=== PATIENT | male | born 1980 | race Caucasian/White ===

== ENCOUNTER 2021-10-15 23:24 | Observation (INO) | payer OTHER, SELFPAY ==
--- NOTE | ~2021-10-15 | CT_ITS ---
EXAMINATION: CT abdomen pelvis w con DATE: 10/16/2021 01:45 INDICATION: Right upper quadrant abdominal pain radiating to back TECHNIQUE: Computed tomography (CT) of the abdomen and pelvis was performed with 100 CC Omnipaque 300 intravenous contrast. Automated exposure control and iterative reconstruction technique were employe d. Exam dose: 760.75 mGy-cm total exam DLP. COMPARISON: None. FINDINGS: The lung bases are clear of infiltrate or consolidation. Normal heart size. No pericardial or pleural effusion. Patchy hepatic steatosis. Cholelithiasis. Gallbladder wall thickening/edema, suggesting acute cholecy stitis. No bile duct or pancreatic duct dilatation. No hepatic, splenic, pancreatic, and adrenal or renal space-occupying mass lesion is detected. No uri nary tract calculus or hydroureteronephrosis. The urinary bladder and prostate gland are unremarkable . Normal appendix. No bowel obstruction, bowel wall thickening, pneumatosis or intraperitoneal free air . Normal caliber and mild atherosclerotic calcification of the abdominal aorta and iliac arteries. No i ntraperitoneal or retroperitoneal or pelvic mass lesion or adenopathy or ascites. Small fat-containing umbilical hernia Severe avascular necrosis, deformity of the left femoral head and prominent secondary left hip osteoa rthritis. Otherwise no suspicious osteolytic or osteoblastic lesions. IMPRESSION: Cholelithiasis and suspected acute cholecystitis Avascular necrosis and secondary osteoarthritis of left hip Reviewed, dictated and finalized at [facility] Reviewed, dictated and finalized at [facility].
[2021-10-15 23:29] VITALS: BP 175/102; PULSE 81; RESP 18; TEMP 36.6; O2SAT 100
[2021-10-16] VITALS (20 sets, daily range): BP systolic 83–182; BP diastolic 41–111; PULSE 59–92; RESP 8–20; TEMP 32.7–36.7; O2SAT 92–100; BMI 33.0
[2021-10-16 00:07] LABS: Basophils Absolute Auto 0.1 K/mm3 (0.0-0.1); Basophils Percent Auto 0.6 % (0.2-1.2); Eosinophils Percent Auto 0.2 % (0-4.4); Hematocrit 43.2 % (42.0-52.0); Hemoglobin 15.2 g/dL (14.0-18.0); Immature Granulocyte Absolute 0.06 K/mm3 (0.00-0.031); Immature Granulocyte Percent A 0.5 % (0-0.5); Lymphocytes Absolute Auto 3.79 K/mm3 (0.9-3.2); Lymphocytes Percent Auto 34.5 % (18.3-44.2); Mean Corpuscular HGB Conc 35.2 g/dl (32-36); Mean Corpuscular Hemoglobin 31.1 pg (26-34); Mean Corpuscular Volume 88.3 fl (80-100); Mean Platelet Volume 10.3 fl (7.4-10.4); Monocytes Absolute Auto 0.7 K/mm3 (0.1-0.6); Monocytes Percent Auto 6.6 % (2.6-8.5); Neutrophils Absolute Auto 6.3 K/mm3 (1.3-6.7); Neutrophils Percent Auto 57.6 % (45.5-73.1); Platelet Count Result 267 k/mm3 (150-375); Red Blood Count 4.89 M/mm3 (4.6-6.20)
[2021-10-16 00:20] LABS: Alanine Aminotransferase 48 U/L (6-50); Albumin Level 4.6 g/dL (3.5-5.1); Alkaline Phosphatase 63 U/L (38-126); Anion Gap 7 mmol/L (8-16); Aspartate Amino Transferase 37 U/L (17-59); Bilirubin,Total 0.4 mg/dL (0.2-1.3); Blood Urea Nitrogen 19 mg/dL (9-20); Calcium 9.1 mg/dL (8.4-10.2); Carbon Dioxide 25 mmol/L (22-30); Chloride 106 mmol/L (98-107); Estimated CRCL calculation 77 ml/min; Estimated Glomerular Filt Rate > 60; Glucose 123 mg/dL (65-110); Lipase 61 U/L (23-300); Potassium 3.8 mmol/L (3.4-5.0); Sodium 138 mmol/L (137-145)
--- NOTE | 2021-10-16 00:26 | ED.ABDPAIN ---
HPI - Abdominal Pain General Chief Complaint: Abdominal Pain Stated Complaint: epigastric pain Time Seen by Provider: 10/16/21 00:11 Source: patient Mode of arrival: ambulatory Limitations: no limitations History of Present Illness HPI narrative: Patient is a 40-year-old male who presents the ED with report of RUQ/epigastric abdominal pain. Patient reports the pain has been going on for the last couple weeks, but became worse over the last 1 week and constant tonight. The pain sometimes does radiate to his back. He has been taking ibuprofen intermittently at home which seems to provide temporary relief, but did not provide relief tonight, thus prompting his presentation to the ED. He also reports having nausea, but denies any vomiting. He has had some diarrhea as well. No rectal bleeding. No fevers, chills. No dysuria, hematuria, urinary frequency. Related Data Allergies Allergy/AdvReac Type Severity Reaction Status Date / Time No Known Allergies Allergy Verified 10/15/21 23:29 Review of Systems Review of Systems: CONSTITUTIONAL: Denies fever, chills, or sweats. CARDIOVASCULAR: Denies chest pain. RESPIRATORY: Denies dyspnea. GASTROINTESTINAL: Reports right upper quadrant/epigastric pain, nausea, diarrhea. Denies vomiting, rectal bleeding. GENITOURINARY: Denies dysuria, urinary frequency, or hematuria. MUSCULOSKELETAL: Reports back pain, radiated from abdominal pain. NEUROLOGIC: Denies headache, numbness, or weakness. All systems reviewed & are unremarkable except as noted in HPI and below PMFSH Past Medical History Medical History (Updated 10/16/21 @ 04:41 by Diane Perez PA-C) No pertinent past medical history Surgical History Surgical History (Updated 10/16/21 @ 00:57 by Diane Perez PA-C) History of vasectomy Family History Family History (Updated 10/16/21 @ 06:32 by Bonnie East RN) Mother Diabetes mellitus Social History Social History (Updated 10/16/21 @ 00:57 by Diane Perez PA-C) Smoking status: Heavy tobacco smoker Second hand tobacco smoke exposure: Yes Alcohol intake: current Drinks per week: 6 Substance use: never Spiritual care concerns: No Exam Narrative: GENERAL: Uncomfortable appearing, well-nourished, non-toxic, in moderate acute distress. HEAD: Normocephalic, atraumatic. NECK: Supple. No adenopathy, no masses. RESPIRATORY: Airway patent, respirations nonlabored. Clear to auscultation bilaterally, no rales, rhonchi, wheezing. CARDIOVASCULAR: Regular rate and rhythm without murmurs, rubs, or gallops. Peripheral pulses 2+ and equal bilaterally. ABDOMINAL: Soft, significant tenderness to palpation and epigastric region and right upper quadrant, voluntary guarding. Nondistended, no hepatosplenomegaly. Normoactive BS. MUSCULOSKELETAL: Moves all extremities. Strength/ROM intact without gross deformities. SKIN: Warm, dry, normal color. No rashes. NEURO: A&O X3. Speech clear. Cranial nerves II-XII grossly intact. Steady gait. No ataxic movements. PSYCHIATRIC: Appropriate mood and affect. Normal interaction. Course Consultations Consultation #1: Discussed case with Dr. Rivas, General Surgery, accepted admission under his service. Pain meds as needed. Will see patient in the morning. Date: 10/16/21 Time: 04:41 Vital Signs Vital signs: Vital Signs Temperature 97.9 F 10/15/21 23:29 Pulse Rate 81 10/15/21 23:29 Respiratory Rate 18 10/15/21 23:29 Blood Pressure 175/102 H 10/15/21 23:29 Pulse Oximetry 100 10/15/21 23:29 Oxygen Delivery Room Air 10/15/21 23:29 Temperature 96.6 F L 10/16/21 06:17 Pulse Rate 63 10/16/21 06:17 Respiratory Rate 20 10/16/21 06:17 Blood Pressure 155/95 H 10/16/21 06:17 Pulse Oximetry 100 10/16/21 06:17 Oxygen Delivery Room Air 10/16/21 07:54 MDM - Abdominal Pain MDM Narrative Medical decision making narrative: Patient presented to ED with report of epigastric/right upper quadrant abdom
[2021-10-16] MEDS: SODIUM CHLORIDE 0.9% IV 1,000 ML 999 ML IV CONT (00:57)
[2021-10-16] MEDS: ONDANSETRON INJ 4 MG/2 ML VIAL IV PUSH (00:58)
[2021-10-16] MEDS: MORPHINE SULFATE (*CRX) 4 MG/ML INJ IV PUSH ×3 (00:58→07:50)
[2021-10-16 01:13] LABS: Appearance Urine Clear (Clear); Bilirubin Urine 1+ (Negative); Color Urine Yellow (Yellow); Glucose Urine UA Negative (Negative); Ketones Urine Negative (Negative); Leukocyte Esterase Ur Negative LEU/UL (Negative); Nitrate Urine Negative (Negative); Protein Urine Negative (Negative); Specific Grav Ur >= 1.030 (1.001-1.035); Urobilinogen Urine 0.2 mg/dL (<2.0); pH Urine 5.5 (5.0-9.0)
[2021-10-16 01:18] LABS: Bacteria Urine Trace /hpf; Mucus Urine Rare /lpf; RBC Urine 0-2 /hpf (0-2); Squamous Epithelial Cell Urine Rare /hpf (Few); WBC Urine 0-3 /hpf
[2021-10-16 01:20] LABS: Add Urine Microscopic? YES; Blood Urine Trace-Intact (Negative)
[2021-10-16] MEDS: HYDROmorphone HCL INJ (*CRX) 1 MG/ML SYR 0.5 MG IV PUSH ×2 (01:31→02:59)
--- NOTE | 2021-10-16 06:55 | ADMGEN ---
0615 This patient, Senthil Mcguire, was admitted to Medical Room 246-01. Patient/family oriented to hospital policies and general routines including ID bracelet, bed and alarms, visiting hours, pain management, procedures, bathroom and other care routines, personal items, smoking policy, room service/diet, and visiting hours. Information on how to activate the Rapid Response Team has been discussed. Patient/Family are encouraged to report perceived risks to care and to ask questions if they do not understand what they are told or what they should do.
--- NOTE | 2021-10-16 08:24 | WPDANESEPP ---
Anes - Eval Pre Procedure Procedure: Laparoscopic Cholecystectomy Date/Time: 10/16/21 08:24 Surgeon: Rob Pre Op Diagnosis: Acute Cholecystitis Patient Data Age: 40 Gender: M Height: 1.7 m Weight: 95.6 kg Last Vital Signs Temp 35.9 C L 10/16/21 06:17 Pulse 63 10/16/21 06:17 Resp 20 10/16/21 06:17 BP 155/95 H 10/16/21 06:17 Pulse Ox 100 10/16/21 06:17 O2 Del Method Room Air 10/16/21 07:54 Allergies Allergy/AdvReac Type Severity Reaction Status Date / Time No Known Allergies Allergy Verified 10/15/21 23:29 Laboratory Tests 10/16/21 10/16/21 10/16/21 00:02 00:02 01:02 WBC 11.0 K/mm3 H K/mm3 (4.5-10.0) RBC 4.89 M/mm3 M/mm3 (4.6-6.20) Hgb 15.2 g/dL g/dL (14.0-18.0) Hct 43.2 % % (42.0-52.0) MCV 88.3 fl fl (80-100) MCH 31.1 pg pg (26-34) MCHC 35.2 g/dl g/dl (32-36) RDW 13.0 % % (11.5-14.5) Plt Count 267 k/mm3 k/mm3 (150-375) MPV 10.3 fl fl (7.4-10.4) Immature Gran % (Auto) 0.5 % % (0-0.5) Neut % (Auto) 57.6 % % (45.5-73.1) Lymph % (Auto) 34.5 % % (18.3-44.2) [place] % (Auto) 6.6 % % (2.6-8.5) Eos % (Auto) 0.2 % % (0-4.4) Baso % (Auto) 0.6 % % (0.2-1.2) Lymph # (Auto) 3.79 K/mm3 H K/mm3 (0.9-3.2) [place] # (Auto) 0.7 K/mm3 H K/mm3 (0.1-0.6) Eos # (Auto) 0.0 K/mm3 K/mm3 (0-0.3) Baso # (Auto) 0.1 K/mm3 K/mm3 (0.0-0.1) Abs Immat Gran (auto) 0.06 K/mm3 H K/mm3 (0.00-0.031) Absolute Neuts (auto) 6.3 K/mm3 K/mm3 (1.3-6.7) Absolute Nucleated RBC 0.0 K/mm3 K/mm3 (0.0-0.012) Nucleated RBC % 0.0 % % (0.0-0.2) Sodium 138 mmol/L mmol/L (137-145) Potassium 3.8 mmol/L mmol/L (3.4-5.0) Chloride 106 mmol/L mmol/L (98-107) Carbon Dioxide 25 mmol/L mmol/L (22-30) Anion Gap 7 mmol/L L mmol/L (8-16) BUN 19 mg/dL mg/dL (9-20) Creatinine 1.20 mg/dL mg/dL (0.7-1.3) Estim Creat Clear Calc 77 ml/min ml/min Estimated GFR > 60 (59 - ) Glucose 123 mg/dL H mg/dL (65-110) Calcium 9.1 mg/dL mg/dL (8.4-10.2) Total Bilirubin 0.4 mg/dL mg/dL (0.2-1.3) AST 37 U/L U/L (17-59) ALT 48 U/L U/L (6-50) Alkaline Phosphatase 63 U/L U/L (38-126) Total Protein 8.0 g/dL g/dL (6.3-8.2) Albumin 4.6 g/dL g/dL (3.5-5.1) Lipase 61 U/L U/L (23-300) Urine Color Yellow (Yellow) Urine Appearance Clear (Clear) Urine pH 5.5 (5.0-9.0) Ur Specific [place] >= 1.030 (1.001-1.035) Urine Protein Negative mg/dL mg/dL (Negative) Urine Glucose (UA) Negative mg/dL mg/dL (Negative) Urine Ketones Negative mg/dL mg/dL (Negative) Ur Blood (Man) Trace-intact (Negative) Urine Nitrate Negative (Negative) Urine Bilirubin 1+ H (Negative) Urine Urobilinogen 0.2 mg/dL mg/dL (<2.0) Leukocyte Esterase Rfl Negative SAY/UL SAY/UL (Negative) Urine RBC 0-2 /hpf /hpf (0-2) Urine WBC 0-3 /hpf /hpf Ur Squamous Epith Cells Rare /hpf /hpf (Few) Urine Bacteria Trace /hpf /hpf Urine Mucus Rare /lpf /lpf Patient hx anesthesia problems: none Family hx anesthesia problems: none Prior surgeries: Vasectomy Results Review: All pre-operative results and documents have been reviewed as part of the pre-operative evaluation. [facility] Past Medical History Medical History (Updated 10/16/21 @ 04:41 by Diane Perez PA-C) No pertinent past medical history Surgical History Surgical History (Updated 10/16/21 @ 00:57 by Diane Perez PA-C) History of vasectomy Family History Family His
--- NOTE | 2021-10-16 09:21 | WPDHPUPDATE1 ---
History and Physical Update Update Date/Time: 10/16/21 09:21 History and Physical has been reviewed, including an updated exam of the patient. There are NO changes in the patient's condition. Risks, benefits, and alternatives have been discussed and questions answered. Patient agrees to proceed with procedure.
--- NOTE | 2021-10-16 09:21 | PM.IMHP ---
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 These were infrequent and very brief. He did not think much of them. Two weeks ago he developed more or less constant or frequently recurring episodes of right upper quadrant abdominal pain. Than 1 week ago this became constant and more severe. He noted some relief with ibuprofen. He did not notice that this is worse with eating but did notice it is worse with bending over. This got to be quite severe and he came to the emergency room yesterday. He was evaluated and noted to have right upper quadrant tenderness and severe pain. He did not get much relief with hydromorphone. [place] white blood cell count was [id number]. He had a CT scan that showed gallstones and evidence of acute cholecystitis. He continues to have severe right upper quadrant pain and cannot get comfortable even with morphine. His liver enzymes were normal. Lipase was normal. He is admitted and this morning is still having severe right upper quadrant abdominal pain. Plan is to proceed with laparoscopic cholecystectomy this morning for acute on chronic cholecystitis. Review of Systems Review of Systems: All systems reviewed & are unremarkable except as noted in HPI and below (HPI and those items noted below) Constitutional: Constitutional: Denies chills and Denies fever(s) Cardiovascular: Cardiovascular: Denies chest pain, Denies diaphoresis, Denies dyspnea and Denies paroxysmal nocturnal dyspnea Respiratory: Respiratory: Denies chest congestion, Denies cough and Denies dyspnea Gastrointestinal: Gastrointestinal: Reports as per HPI, Reports abdominal pain, Denies diarrhea, Denies nausea and Denies vomiting Integumentary/Breasts: Skin/Breast: Denies lesions and Denies rash [facility] Surgical History Surgical History (Updated 10/16/21 @ 09:32 by Roman Rivas MD) History of vasectomy Family History Family History (Updated 10/16/21 @ 06:32 by Bonnie East RN) Mother Diabetes mellitus Social History Social History (Updated 10/16/21 @ 00:57 by Diane Perez PA-C) Smoking status: Heavy tobacco smoker Second hand tobacco smoke exposure: Yes Alcohol intake: current Drinks per week: 6 Substance use: never Spiritual care concerns: No Meds Home Medications and Allergies Allergies Allergy/AdvReac Type Severity Reaction Status Date / Time No Known Allergies Allergy Verified 10/15/21 23:29 Vital Signs Vital Signs - 24 hr 10/15/21 23:29 10/16/21 00:28 10/16/21 01:03 Temperature 36.6 C Pulse Rate 81 72 68 Respiratory Rate 18 20 20 Blood Pressure 175/102 H 178/111 H 168/94 H Pulse Oximetry 100 100 98 Oxygen Delivery Room Air 10/16/21 02:17 10/16/21 02:58 10/16/21 04:24 Temperature Pulse Rate 92 74 76 Respiratory Rate 18 18 18 Blood Pressure 159/86 H 173/95 H 182/100 H Pulse Oximetry 97 94 97 Oxygen Delivery 10/16/21 05:18 10/16/21 06:17 10/16/21 07:54 Temperature 35.9 C L Pulse Rate 75 63 Respiratory Rate 18 20 Blood Pressure 169/87 H 155/95 H Pulse Oximetry 96 100 Oxygen Delivery Room Air Exam Const: General: cooperative, no acute distress, alert, awake and uncomfortable Nutritional Appearance: overweight Orientation/consciousness: patient oriented x3 HENMT: Head: normocephalic and atraumatic Mouth: Yes Normal oral and palatal mucosa present Eyes: Conjunctivae: conjunctivae normal Pupils: Equal, round and reactive pupils present EOM: EOMs intact bilaterally Neck: Neck: normal visual inspection, no lymphadenopathy and nontender Resp: Effort & Inspection: normal respiratory effort Auscultation: clear to auscultation bilaterally Cardio: Rate: regular rate Rhythm: regular rhythm Heart sounds: no gallops, no murmurs and no
[2021-10-16] MEDS: LACTATED RINGERS 1,000 ML 30 ML IV CONT (09:45)
--- NOTE | 2021-10-16 09:49 | WPDANESEPPF ---
Anes - Initial Pre Proc Eval Procedure: Operation Date: 10/16/21 09:00 Proposed Procedures p Laparoscopic Cholecystectomy - Roman Rivas MD Date/Time: 10/16/21 09:49 Surgeon: Roman Rivas MD Pre Op Diagnosis: Acute Cholecystitis Patient Data Age: 40 Gender: M Height: 1.7 m Weight: 95.6 kg Last Vital Signs Temp 35.9 C L 10/16/21 06:17 Pulse 63 10/16/21 06:17 Resp 20 10/16/21 06:17 BP 155/95 H 10/16/21 06:17 Pulse Ox 100 10/16/21 06:17 O2 Del Method Room Air 10/16/21 07:54 Allergies Allergy/AdvReac Type Severity Reaction Status Date / Time No Known Allergies Allergy Verified 10/15/21 23:29 Laboratory Tests 10/16/21 10/16/21 10/16/21 00:02 00:02 01:02 WBC 11.0 K/mm3 H K/mm3 (4.5-10.0) RBC 4.89 M/mm3 M/mm3 (4.6-6.20) Hgb 15.2 g/dL g/dL (14.0-18.0) Hct 43.2 % % (42.0-52.0) MCV 88.3 fl fl (80-100) MCH 31.1 pg pg (26-34) MCHC 35.2 g/dl g/dl (32-36) RDW 13.0 % % (11.5-14.5) Plt Count 267 k/mm3 k/mm3 (150-375) MPV 10.3 fl fl (7.4-10.4) Immature Gran % (Auto) 0.5 % % (0-0.5) Neut % (Auto) 57.6 % % (45.5-73.1) Lymph % (Auto) 34.5 % % (18.3-44.2) [place] % (Auto) 6.6 % % (2.6-8.5) Eos % (Auto) 0.2 % % (0-4.4) Baso % (Auto) 0.6 % % (0.2-1.2) Lymph # (Auto) 3.79 K/mm3 H K/mm3 (0.9-3.2) [place] # (Auto) 0.7 K/mm3 H K/mm3 (0.1-0.6) Eos # (Auto) 0.0 K/mm3 K/mm3 (0-0.3) Baso # (Auto) 0.1 K/mm3 K/mm3 (0.0-0.1) Abs Immat Gran (auto) 0.06 K/mm3 H K/mm3 (0.00-0.031) Absolute Neuts (auto) 6.3 K/mm3 K/mm3 (1.3-6.7) Absolute Nucleated RBC 0.0 K/mm3 K/mm3 (0.0-0.012) Nucleated RBC % 0.0 % % (0.0-0.2) Sodium 138 mmol/L mmol/L (137-145) Potassium 3.8 mmol/L mmol/L (3.4-5.0) Chloride 106 mmol/L mmol/L (98-107) Carbon Dioxide 25 mmol/L mmol/L (22-30) Anion Gap 7 mmol/L L mmol/L (8-16) BUN 19 mg/dL mg/dL (9-20) Creatinine 1.20 mg/dL mg/dL (0.7-1.3) Estim Creat Clear Calc 77 ml/min ml/min Estimated GFR > 60 (59 - ) Glucose 123 mg/dL H mg/dL (65-110) Calcium 9.1 mg/dL mg/dL (8.4-10.2) Total Bilirubin 0.4 mg/dL mg/dL (0.2-1.3) AST 37 U/L U/L (17-59) ALT 48 U/L U/L (6-50) Alkaline Phosphatase 63 U/L U/L (38-126) Total Protein 8.0 g/dL g/dL (6.3-8.2) Albumin 4.6 g/dL g/dL (3.5-5.1) Lipase 61 U/L U/L (23-300) Urine Color Yellow (Yellow) Urine Appearance Clear (Clear) Urine pH 5.5 (5.0-9.0) Ur Specific [place] >= 1.030 (1.001-1.035) Urine Protein Negative mg/dL mg/dL (Negative) Urine Glucose (UA) Negative mg/dL mg/dL (Negative) Urine Ketones Negative mg/dL mg/dL (Negative) Ur Blood (Man) Trace-intact (Negative) Urine Nitrate Negative (Negative) Urine Bilirubin 1+ H (Negative) Urine Urobilinogen 0.2 mg/dL mg/dL (<2.0) Leukocyte Esterase Rfl Negative SAY/UL SAY/UL (Negative) Urine RBC 0-2 /hpf /hpf (0-2) Urine WBC 0-3 /hpf /hpf Ur Squamous Epith Cells Rare /hpf /hpf (Few) Urine Bacteria Trace /hpf /hpf Urine Mucus Rare /lpf /lpf Patient hx anesthesia problems: none Family hx anesthesia problems: none Results Review: All pre-operative results and documents have been reviewed as part of the pre-operative evaluation. [facility] Surgical History Surgical History History of vasectomy Family History Family History (Reviewed 10/16/21 @ 09:49 by Sanket Joseph
[2021-10-16] MEDS: LIDO 1%/EPINEPHRINE/PF 1:200,000 30 ML VIAL XX (10:19)
--- NOTE | 2021-10-16 10:51 | W.PM.PROC2 ---
Procedure Note - Detailed Date of Procedure 10/16/21 Pre-op Diagnosis Acute on chronic cholecystitis, cholelithiasis Post-op Diagnosis Other (Acute cholecystitis with cholelithiasis) Procedure Performed Laparoscopic cholecystectomy Surgeon Roman Rivas MD Time Clock Mechanic Iliana BURNETT Anesthesia General and Local (1% lidocaine with epinephrine) Indications Patient has a 2 week history of right upper quadrant pain which has gotten worse in the last week. He came to the emergency room last night with right upper quadrant pain and tenderness. [place] white blood [place] [address]. Liver enzymes were normal. CT scan showed gallstones with evidence of acute cholecystitis. He is taken to surgery now for laparoscopic cholecystectomy. Findings Patient had a distended gallbladder with a large amount of edema and gallbladder wall thickening. He had a large stone in the neck of the gallbladder. There was no biliary ductal dilatation. There was some fatty liver. Description of Procedure Patient was taken to surgery and induced into general anesthesia. The abdomen is prepped and draped. Trocars were placed in usual fashion using local anesthetic and applied Medical optical trocars. A 5 mm camera was used. The gallbladder was very tensely distended. It was decompressed with a laparoscopic aspirator. The cholecystotomy was closed with a Vicryl endoloop. The gallbladder was then retracted anterosuperiorly. We still could not visualize the cholecystohepatic triangle as the patient had hepatosteatosis and we were limited in the amount of retraction of the gallbladder we could provide. A 5th 5 mm port was placed in the left mid abdomen. This was done under direct visualization. A blunt retractor was then used to retract the omentum and duodenum posteriorly and we then had good visualization of the infundibulum and neck of the gallbladder. The fatty tissue over the cholecystohepatic triangle was quite edematous. We dissected this using primarily blunt dissection and minimal cautery. The cystic duct was found easily. It was dissected throughout its length. The cystic artery was quite a bit posterior. It was also found and dissected. I also dissected the gallbladder off the liver at its lower 3rd. Critical view was achieved. I then securely clipped and divided the cystic duct and cystic artery. The gallbladder wall was very thickened and edematous consistent with acute cholecystitis. There were large stones in the gallbladder which were obvious. The peritoneum was divided with cautery on either side of the gallbladder and then we gently freed the gallbladder from the liver. Bleeding was minimal. We continued until the fundus of the gallbladder was freed from the liver. The liver was checked for hemostasis which was good. We placed the gallbladder in an Endo-Catch bag retrieved it through the 10 11 epigastric trocar site. This trocar site had to be dilated bluntly and the skin incision had to be enlarged to accommodate the thickened edematous gallbladder with large stones inside. Eventually the gallbladder was removed via the Endo-Catch device. We replaced the 10 11 trocar and I used a towel clip to occlude the skin and subcutaneous so that we could reinsufflate. We then reviewed the gallbladder fossa. Hemostasis was good. The area was irrigated and suctioned to or 3 times. No evidence of bleeding or bile leakage was noted. We then evacuated CO2 and removed the trocar sleeves. An 0 Vicryl suture was used to close the fascia at the 10 11 epigastric trocar site. The subQ was closed with 3-0 Vicryl suture. The skin was closed with running 4-0 Monocryl skin suture. The other trocar sites were closed with running 4-0 Monocryl subcuticular skin suture as well. The wounds were dressed with Exofin surgical adhesive. The patient was awakened and taken to recovery in good condition. Sponge needle counts were correct x2. Estimated Blood Loss -5 Drains N
[2021-10-16] MEDS: LACTATED RINGERS 1,000 ML 100 ML IV CONT (12:55)
[2021-10-16] MEDS: NICOTINE (*PBKC) 14 MG PATCH 1 PATCH TRANSDERM (13:00)
[2021-10-16] MEDS: HYDROcodone/acetaminophen (*CRX) 5-325 MG TABLET 1 TAB PO (17:09)
[2021-10-16] MEDS: HYDROcodone/acetaminophen (*CRX) 10-325 MG TABLET 1 TAB PO (21:09)
[2021-10-16] MEDS: ENOXAPARIN 30 MG/0.3 ML SYRINGE SUB-Q (21:10)
[2021-10-16] MEDS: FAMOTIDINE 20 MG TABLET PO (21:10)
[2021-10-17 02:00] VITALS: BP 112/65; PULSE 64; RESP 16; TEMP 36.4; O2SAT 98
[2021-10-17 05:30] VITALS: BP 116/69; PULSE 60; RESP 16; TEMP 36.5; O2SAT 99
[2021-10-17 05:45] LABS: Hematocrit 39.9 % (42.0-52.0); Hemoglobin 13.6 g/dL (14.0-18.0); Mean Corpuscular HGB Conc 34.1 g/dl (32-36); Mean Corpuscular Hemoglobin 30.8 pg (26-34); Mean Corpuscular Volume 90.3 fl (80-100); Mean Platelet Volume 10.9 fl (7.4-10.4); Platelet Count Result 230 k/mm3 (150-375); Red Blood Count 4.42 M/mm3 (4.6-6.20); Red Cell Distribution Width 13.1 % (11.5-14.5); White Blood Count 15.8 K/mm3 (4.5-10.0)
[2021-10-17 05:59] LABS: Alanine Aminotransferase 121 U/L (6-50); Alkaline Phosphatase 49 U/L (38-126); Anion Gap 5 mmol/L (8-16); Aspartate Amino Transferase 54 U/L (17-59); Bilirubin,Total 0.5 mg/dL (0.2-1.3); Blood Urea Nitrogen 18 mg/dL (9-20); Calcium 8.7 mg/dL (8.4-10.2); Carbon Dioxide 23 mmol/L (22-30); Chloride 108 mmol/L (98-107); Estimated CRCL calculation 86 ml/min; Estimated Glomerular Filt Rate > 60; Glucose 133 mg/dL (65-110); Potassium 4.1 mmol/L (3.4-5.0); Sodium 136 mmol/L (137-145)
[2021-10-17] MEDS: ENOXAPARIN 30 MG/0.3 ML SYRINGE SUB-Q (08:32)
[2021-10-17] MEDS: FAMOTIDINE 20 MG TABLET PO (08:32)
[2021-10-17] MEDS: ACETAMINOPHEN 500 MG TABLET PO (08:42)
--- NOTE | 2021-10-17 09:14 | PM.DS ---
DS: Admitting Diagnosis Discharge Date 10/17/2021 Admitting Diagnosis acute on chronic cholecystitis, cholelithiasis smoker overweight DS: Discharge Diagnosis Discharge Diagnosis (1) Cholelithiasis and acute cholecystitis with obstruction: Code(s): K80.01 - Calculus of gallbladder with acute cholecystitis with obstruction Status: Acute Assessment and Plan: laparoscopic cholecystectomy performed 10/16/2021 (2) Smoker: Code(s): F17.200 - Nicotine dependence, unspecified, uncomplicated Status: Chronic Assessment and Plan: advised to quit DS: Summary Hospital Course Hospital Course: patient came to the emergency room very early on the day of admission, 10/16/2021, with a 2 week history of severe epigastric abdominal pain. The pain and gotten much worse in the preceding 5-7 days. He had not had any nausea or vomiting. He had not noticed any fever. Evaluation in the emergency room showed leukocytosis and tenderness in the right upper quadrant. CT scan showed gallstones and evidence of cholecystitis. Patient was admitted to Dr. Rivas and started on IV Zosyn antibiotics. He was still very uncomfortable with pain even after several doses of narcotics. He was taken to surgery on 10/16/2021. He underwent laparoscopic cholecystectomy. At surgery he was noted to have acute cholecystitis with several large stones, thickened gallbladder wall with a lot of edema. The surgery went well. There was minimal spillage and the patient was quite stable with minimal blood loss as well. He was observed overnight and continued on IV Zosyn antibiotics. He was comfortable on oral analgesics and tolerating p.o. intake well on postop day 1. He was stable with ambulation. He is discharged on 10/17/2021 in improved condition. Time spent discussing smoking cessation with patient: 3 to 10 minutes Status at Discharge Functional status at discharge: independent ambulation Overall status at discharge: patient is progressing back to baseline Time Spent with Patient Time attestation: Total time spent providing and/or coordinating discharge services: Time spent: Less than 30 minutes Exam Const: General: comfortable, no acute distress, alert and awake Nutritional Appearance: overweight Orientation/consciousness: patient oriented x3 Limitations: no limitations GI: Inspection: no abdominal wall ecchymosis, incision ( Slight drainage from right lower quadrant trocar site.), obesity ( protuberant abdomen) and other ( Other trocar sites dry and healing well) GI Palp: Yes Soft to palpation, Yes Tenderness to palpation present (GI) ( appropriate incisional tenderness), No Guarding due to palpation present (GI), No Palpable mass present and No Rebound tenderness present Auscultation: normal bowel sounds Neuro: General: patient oriented x3, no focal motor deficits and No confusion Extrem: General: no calf tenderness and no edema Psych: Affect: normal affect Insight: Good insight present (Psych) Judgement: Good judgement present (Psych) DS: Data Data Completed and Pending Pending studies at discharge: Pending at discharge 10/16/21 10:22 Surgical [PTH] Routine Labs on day of discharge: Labs from last 24 hours 10/17/21 10/17/21 10/16/21 05:17 05:17 09:27 WBC 15.8 H RBC 4.42 L Hgb 13.6 L Hct 39.9 L MCV 90.3 MCH 30.8 MCHC 34.1 RDW 13.1 Plt Count 230 MPV 10.9 H Sodium 136 L Potassium 4.1 Chloride 108 H Carbon Dioxide 23 Anion Gap 5 L BUN 18 Creatinine 1.10 Estim Creat Clear Calc 86 Estimated GFR > 60 Glucose 133 H Calcium 8.7 Total Bilirubin 0.5 AST 54 ALT 121 H Alkaline Phosphatase 49 Total Protein 7.0 Albumin 4.0 Blood Type A Positive Antibody Screen Negative Discharge Plan Discharge Attending physician on discharge: Roman Rivas Consulting providers: Hever Edward Discharging
[2021-10-17 10:02] VITALS: BP 148/83; PULSE 64; RESP 14; TEMP 36.2; O2SAT 99
== END 2021-10-17 11:08 | disposition home or self-care (01) ==
LOC: ANHED 10-16 04:41 → ANH2MED 10-16 05:00
PROVIDERS: Admitting Provider Surgery; Emergency Provider Emergency Medicine; Visit Provider Surgery
PROC: 0FT44ZZ Resection of Gallbladder, Percutaneous Endoscopic Approach (ICD-10-PCS; CPT 47562; principal; 2021-10-16 09:00)
DX: K80.12 Calculus of gallbladder with acute and chronic cholecystitis without obstruction (principal); F17.210 Nicotine dependence, cigarettes, uncomplicated
CPT/HCPCS: 47562; 36415; 74177; 80053; 81001; 83690; 85025; 85027; 86850; 86900; 86901; 88304; 96361; 96365; 96375; 96376; 99285; A9270; C1713; G0378; J0330; J1100; J1170; J1650; J2250; J2270; J2405; J2543; J2704; J2710; J3010; J7030; J7120; Q9967